=== PATIENT | male | born 1985 | race Caucasian/White ===

== ENCOUNTER 2018-04-18 10:06 | Emergency (ER) | payer BC, OTHER ==
--- NOTE | 2018-04-18 11:00 | ED ---
Skin Complaint - HPI Summary HPI Summary: Patient is a 32-year-old female who presents emergency for for reevaluation of infection to his right foot. Patient states he's had a plantars wart to the bottom of his right foot for several weeks. Patient states a few weeks ago he dug wart out and it subsequently got infected. Patient states he was seen at urgent care several days ago and started on clindamycin. Patient states before the top of his foot was red in the bottom was red and very swollen. Patient states that redness swelling and pain has greatly improved. Patient concerned today because he looked at foot and noticed a purplish color and came in for reevaluation. He otherwise denies fever, chills, nausea, vomiting. Symptoms are mild in severity. Walking makes symptoms worse. Rest makes symptoms better. - History of Current Complaint Chief Complaint: EDExtremityLower Time Seen by Provider: 04/18/18 10:46 Stated Complaint: WART ON RIGHT FOOT Hx Obtained From: Patient Pain Intensity: 0 - Allergy/Home Medications Allergies/Adverse Reactions: Allergies Allergy/AdvReac Type Severity Reaction Status Date / Time bismuth subsalicylate Allergy Hives Verified 04/18/18 10:11 [From Pepto-Bismol] Home Medications: Home Medications NK [No Home Medications Reported] 04/18/18 [History Confirmed 04/18/18] PMH/Surg Hx/FS Hx/Imm Hx Previously Healthy: Yes Infectious Disease History: No Infectious Disease History: Denies: Traveled Outside the [place] in Last 30 Days - Family History Known Family History: Positive: Non-Contributory - Social History Occupation: Retired Lives: With Family Alcohol Use: Occasionally Substance Use Type: Reports: None Smoking Status (MU): Unknown if Ever Smoked Review of Systems Constitutional: Negative Negative: Fever, Chills Positive: Other - plantar warts and discoloration to bottom of right foot. All Other Systems Reviewed And Are Negative: Yes Physical Exam Triage Information Reviewed: Yes Vital Signs On Initial Exam: Initial Vitals Temp Pulse Resp BP Pulse Ox 97.9 F 83 16 139/83 97 04/18/18 10:08 04/18/18 10:08 04/18/18 10:08 04/18/18 10:08 04/18/18 10:08 Vital Signs Reviewed: Yes Appearance: Positive: Well-Appearing - Pt. lying in bed in NAD. present. Skin: Positive: Warm, Dry Head/Face: Positive: Normal Head/Face Inspection Eyes: Positive: Normal, EOMI Neck: Positive: Supple Musculoskeletal: Positive: Other - Small wound to the plantar aspect of the right distal foot. Small area of surrouding fluctuance. This area is slightly purpulish. Minimal pain with compression. No induration. Skin marking noted to top and bottom of foot. There is no erythema to top or bottom of foot. Neurological: Positive: Normal, CN Intact II-III Psychiatric: Positive: Affect/Mood Appropriate Diagnostics - Vital Signs Vital Signs Temp Pulse Resp BP Pulse Ox 04/18/18 10:08 97.9 F 83 16 139/83 97 - Laboratory Lab Statement: Any lab studies that have been ordered have been reviewed, and results considered in the medical decision making process. Course/Dx - Course Course Of Treatment: Pt. presenting for re-eval for recent infection to plantar wart. He is afebrile and well appearing. He has no redness or swelling to foot. He has very minimal pain. Infection seems to be clearing nicely with clindamycin. No change in treatment needed today. Advised to continue clinda. To elevate and apply heat. to call podiatry today to schedule an apt. Pt. understands and agrees with plan. Will return if sxs change or worsen. - Differential Diagnoses - Skin Complaint Differential Diagnoses: Abscess, Cellulitis, Scabies, Tinea - Diagnoses Provider Diagnoses: Plantar wart Discharge - Sign-Out/Discharge Documenting (check all that apply): Patient Departure - Discharge Plan Condition: Good Disposition: HOME Patient Education Materials: Plantar Wart (ED) Referrals: [facility] [Outside] Jaime Escalante DPM [Doctor of Podiatric Medicine] - Additional Instructions: Call podiatry today to schedule an appointment Continue antibiotic as directed Elevate foot and apply warm compresses Tylenol or Motrin for pain as directed Return to ER for increased pain, swelling, redness, fever, or if concerned - Billing Disposition and Condition Condition: GOOD Disposition: Home
[2018-04-18 12:00] VITALS: BP 0/0
== END 2018-04-18 11:59 | disposition home or self-care (01) ==
LOC: ED 10:06
DX: B07.0 Plantar wart (principal); Z88.8 Allergy status to other drugs, medicaments and biological substances
CPT/HCPCS: 99282